=== PATIENT | male | born 1985 | race Caucasian/White ===

== ENCOUNTER 2016-09-10 07:49 | Emergency (ER) | payer BC ==
[~2016-09-10] VITALS: Wt 90.7 kg
[~2016-09-10 07:49] MED LIST: ANAPROX DS550 MG PO; BIAXIN500 MG PO; CLARITIN10 MG PO; CYCLOBENZAPRINE10 MG PO; NAPROSYN500 MG PO; NKHM; ZANTAC150 MG PO
[2016-09-10 08:11] LABS: BILIRUBIN NEGATIVE (NEGATIVE); BLOOD NEGATIVE (NEGATIVE); CLARITY CLEAR (CLEAR); COLOR YELLOW (YELLOW); GLUCOSE NEGATIVE (NEGATIVE); KETONE NEGATIVE (NEGATIVE); LEUKO ESTERASE TRACE (NEGATIVE); NITRITE NEGATIVE (NEGATIVE); PROTEIN NEGATIVE (NEGATIVE); SPECIFIC GRAVITY <= 1.005 (1.005-1.030); UROBILINOGEN 0.2 E.U./dl (0.2-1.0)
[2016-09-10 08:27] LABS: RBC 0-2 rbc/hpf (0-2); URINE REFLEX COMMENT YES (NO)
[2016-09-10] MEDS ORDERED: EC NAPROSYN500 MG PO (10:32)
[2016-09-10] MEDS ORDERED: CYCLOBENZAPRINE10 MG PO (10:32)
== END 2016-09-10 10:37 | disposition home or self-care (01) ==
LOC: ED 07:49
PROVIDERS: Emergency Medicine
DX: R10.30 Lower abdominal pain, unspecified (principal); F17.200 Nicotine dependence, unspecified, uncomplicated; Z88.0 Allergy status to penicillin; Z88.1 Allergy status to other antibiotic agents; Z90.49 Acquired absence of other specified parts of digestive tract

== ENCOUNTER 2018-01-18 20:36 | Emergency (ER) | payer BC ==
[~2018-01-18] VITALS: Ht 177.8 cm; Wt 95.3 kg
[~2018-01-18 20:36] MED LIST changes: +EC NAPROSYN500 MG PO
== END 2018-01-18 22:01 | disposition home or self-care (01) ==
LOC: ED 20:36
DX: T15.02XA Foreign body in cornea, left eye, initial encounter (principal); Z23 Encounter for immunization; F17.200 Nicotine dependence, unspecified, uncomplicated; Z88.0 Allergy status to penicillin; Z88.1 Allergy status to other antibiotic agents; X58.XXXA Exposure to other specified factors, initial encounter; Y93.89 Activity, other specified; Y92.69 Other specified industrial and construction area as the place of occurrence of the external cause; Y99.9 Unspecified external cause status

== ENCOUNTER → 2020-04-12 | Outpatient (CLI) | payer BC | END | disposition home or self-care (01) | LOC: COVID19 13:08 | PROVIDERS: ATTEND Internal Medicine | DX: Z20.828 Contact with and (suspected) exposure to other viral communicable diseases (principal) ==

== ENCOUNTER 2020-12-09 21:11 | Emergency (ER) | payer BC ==
[~2020-12-09] VITALS: Ht 177.8 cm; Wt 100.7 kg
[2020-12-10 00:35] LABS: BASO # 0.1 10*3/uL (0.0-0.1); BASO % 0.5 % (0.0-1.0); EOS # 0.1 10*3/uL (0.0-0.4); EOS % 0.9 % (1.0-4.0); LYMPH # 2.9 10*3/uL (1.3-4.4); LYMPH % 23.5 % (27.0-41.0); MEAN CORPUSCULAR HGB 30.6 pg (27.0-31.0); MEAN CORPUSCULAR HGB CONC 33.3 g/dl (33.0-37.0); MEAN PLATELET VOLUME 11.2 fl (9.6-12.3); MONO # 0.9 10*3/uL (0.1-1.0); MONO % 7.4 % (3.0-9.0); NEUT # 8.5 10*3/uL (2.3-7.9); NEUT % 67.5 % (47.0-73.0); PLATELET COUNT AUTOMATED 198 10*3/uL (130-400); RED CELL DISTRI WIDTH 13.2 % (0-14.5); WHITE BLOOD COUNT 12.5 10*3/uL (4.8-10.8)
[2020-12-10 00:51] LABS: ALBUMIN 4.1 gm/dl (3.1-4.5); ALKALINE PHOSPHATASE 88 U/L (45-117); BUN 13 mg/dl (7-24); CHLORIDE 108 mmol/L (98-107); CREATININE 1.14 mg/dL (0.70-1.30); POTASSIUM 3.9 mmol/L (3.5-5.1); SGOT/AST 25 IU/L (3-35); SGPT/ALT 27 U/L (12-78); SODIUM 140 mmol/L (136-145); TOTAL PROTEIN 7.9 gm/dL (6.4-8.2)
[2020-12-10] MEDS ORDERED: PROCTOFOAM-HC 110 G1 R (04:18)
== END 2020-12-10 04:31 | disposition home or self-care (01) ==
LOC: ED 21:11
PROVIDERS: Emergency Medicine
DX: L29.0 Pruritus ani (principal); F17.200 Nicotine dependence, unspecified, uncomplicated; Z88.0 Allergy status to penicillin; Z88.1 Allergy status to other antibiotic agents

== ENCOUNTER 2022-02-26 12:46 | Emergency (ER) | payer BC ==
[~2022-02-26] VITALS: Ht 177.8 cm; Wt 90.7 kg
[~2022-02-26 12:46] MED LIST changes: +PROCTOFOAM-HC 110 G1 R
[2022-02-26] MEDS ORDERED: NAPROXEN250 MG PO (13:03)
[2022-02-26] MEDS ORDERED: CLINDAMYCIN HC300 MG PO (13:03)
[2022-02-26] MEDS ORDERED: TYLENOL325 M1 PO (13:03)
== END 2022-02-26 13:12 | disposition home or self-care (01) ==
LOC: ED 12:46
DX: K04.7 Periapical abscess without sinus (principal); Z88.0 Allergy status to penicillin; Z88.1 Allergy status to other antibiotic agents; Z79.899 Other long term (current) drug therapy; Z90.49 Acquired absence of other specified parts of digestive tract